=== PATIENT | male | born 1970 | race Two or more races ===

== ENCOUNTER 2019-08-17 13:45 | Emergency (ER) | payer OTHER ==
[~2019-08-17] VITALS: Ht 177.8 cm; Wt 86.6 kg
[2019-08-17 13:50] VITALS: BP 116/80; Ht 177.8 cm; Wt 86.6 kg
[2019-08-17 14:49] LABS: BASOPHIL % 0.4 % (0-2); PLATELET COUNT 129 x10^3mcL (130-400); RED CELL DISTRIBUTION WIDTH 12.9 % (11.5-14.5)
[2019-08-17 14:52] LABS: CALCIUM 8.6 mg/dL (8.5-10.1); CARBON DIOXIDE 28.7 mmol/L (21-32); CHLORIDE SERUM 102 mmol/L (98-107); CREATININE SERUM 0.9 mg/dL (0.7-1.3); GFR1 > 60 mL/min; GLUCOSE SERUM 95 mg/dL (74-106); POTASSIUM SERUM 3.8 mmol/L (3.5-5.1); SODIUM SERUM 140 mmol/L (136-145)
[2019-08-17 14:55] LABS: ALBUMIN 3.8 g/dL (3.4-5.0); ALKALINE PHOSPHATASE 69 U/L (46-116); ALT/SGPT 53 U/L (16-63); AST/SGOT 26 U/L (15-37); BILIRUBIN TOTAL 0.6 mg/dL (0.20-1.00); LIPASE 63 IU/L (73-393)
== END 2019-08-17 16:00 | disposition home or self-care (01) ==
LOC: ED 13:45
PROVIDERS: Emergency Medicine
DX: K52.9 Noninfective gastroenteritis and colitis, unspecified (principal)
CPT/HCPCS: 36415; Q0162